=== PATIENT | female | born 1955 | race Two or more races ===

== ENCOUNTER → 2016-06-16 | Outpatient (CLI) | payer BC ==
--- NOTE | 2016-06-16 18:41 | RADRPT ---
PROCEDURE: XR Chest. CLINICAL INDICATION: COUGH TECHNIQUE: Single frontal view of the chest was obtained. COMPARISON: 09/12/2014 FINDINGS: The cardiomediastinal silhouette is normal size. Pulmonary vasculature is within normal limits. Th ere is mild increased markings in the lung bases.. No signs of pleural fluid or pneumothorax are seen. The osseous structures and soft tissues are unre markable. IMPRESSION: 1. Left base atelectasis, versus minimal infiltrate. Right base atelectasis. 2. Hypoventilatory exam. 3. Irregular appearance of the left humeral head. Consider shoulder x-rays series as clinically wa rranted. RPTAT: HBST .Javier Engel MD, Date Time Electronically viewed and signed by .Javier Engel MD, on 06/16/2016 18:41 .T/
== END | disposition home or self-care (01) ==
LOC: RAD 16:15
PROVIDERS: ATTEND Internal Medicine
DX: R05 Cough (principal); J98.11 Atelectasis
CPT/HCPCS: 71010